=== PATIENT | male | born 1960 ===

== ENCOUNTER 2024-03-31 06:26 | Day surgery (SDC) | payer OTHER ==
[2024-03-31] MEDS ORDERED: FLUMAZENIL 0.5 MG/5 ML ML IV STA (09:02)
[2024-03-31] MEDS ORDERED: DIPHENHYDRAMINE HCL 50 MG/ML VIAL 1ML IV ONE (09:15)
[2024-03-31] MEDS ORDERED: fentaNYL CITRATE 50 MCG/ML AMPUL IV PUSH ONE (09:15)
[2024-03-31] MEDS ORDERED: MIDAZOLAM HCL 2 MG/2 ML VIAL IV ONE (09:15)
== END 2024-03-31 10:45 | disposition home or self-care (01) ==
LOC: AMB-ENDOS 06:26
PROVIDERS: ATTEND Colon & Rectal Surgery
DX: D12.5 Benign neoplasm of sigmoid colon (principal); K57.30 Diverticulosis of large intestine without perforation or abscess without bleeding; Z12.11 Encounter for screening for malignant neoplasm of colon